=== PATIENT | female | born 1995 | race Two or more races ===

== ENCOUNTER 2018-12-12 23:03 | Emergency (ER) | payer OTHER ==
[~2018-12-12] VITALS: Ht 170.2 cm; Wt 69.7 kg
[2018-12-12] MEDS ORDERED: LIDOCAINE-MPF 1%, 2ML ONE (23:20)
--- NOTE | 2018-12-12 23:26 | NUR ---
MED REQUEST SENT TO PHARMACY
[2018-12-12] MEDS ORDERED: LIDOCAINE 2% VISCOUS 15 ML UDC MM ONE (23:30)
[2018-12-12] MEDS ORDERED: LIDOCAINE 2% VISCOUS 15 ML UDC ONE (23:32)
--- NOTE | 2018-12-12 23:35 | NUR ---
PER PHARMACY VISCOUS LIDO IN OMNICELL; CALLED PHARMACY BACK TO ENSURE IT IS OK TO PUT IN EAR PACKAGE STATES ORAL USE ONLY.
--- NOTE | 2018-12-12 23:42 | NUR ---
SPOKE WITH VERONA FROM PHARMACY, UNABLE TO DETERMINE IF VISCOUS LIDO IS SAFE TO US IN EAR. VERONA ALSO SPOKE WITH FRANDY RODRIGUEZ. FRANDY RODRIGUEZ AT NOW TO PLACE REGULAR LIDO INTO EAR PRIOR TO EAR IRRIGATION.
--- NOTE | 2018-12-12 23:55 | NUR ---
SALTY MOYA IN TO ATTEMPT TO EXTRACT FINGERNAIL FB FROM EAR. UNSUCCESSFUL; MORE LIDO ADDED TO EAR BY SALTY MOYA. WILL RE-ATTEMPT IN ABOUT 10 MINUTES.
--- NOTE | 2018-12-13 00:17 | NUR ---
EAR IRRIGATION PERFORMED BY THIS RN AND SALTY MOYA. UNABLE TO DISLODGE FB. PT. NOT TOLERATING IRRIGATION R/T PAIN. SALTY MOYA WORKING ON A PLAN TO REMOVE FB WITH ERMD.
[2018-12-13] MEDS ORDERED: LORazepam 0.5MG TABLET ONE (00:31)
--- NOTE | 2018-12-13 00:34 | NUR ---
PT. MEDICATED PER APR. RECEIVED ALLIGATOR FORCEPS FROM OR FOR SALTY MOYA. PT. STEPHEN. REASSURANCE OFFERED.
[2018-12-13] MEDS ORDERED: LORazepam 0.5MG TABLET PO ONE (01:00)
--- NOTE | 2018-12-13 01:03 | NUR ---
SALTY MOYA AND THIS RN AT . SALTY MOYA ATTEMPTED AGAIN TO GET FB OUT OF EAR. PT. VERY TEARFUL AND SHOUTING "I CAN'T" PT. REFUSING TO LET NITA ATTEMPT TO GET FB OUT AGAIN. EMOTIONAL SUPPORT OFFERED.
[2018-12-13 01:14] VITALS: BP 133/89
== END 2018-12-13 01:15 | disposition home or self-care (01) ==
LOC: ED 12-13 00:44
DX: T16.1XXA Foreign body in right ear, initial encounter (principal); X58.XXXA Exposure to other specified factors, initial encounter; Y93.89 Activity, other specified; Y92.89 Other specified places as the place of occurrence of the external cause; Y99.8 Other external cause status
CPT/HCPCS: 69200; 99284